=== PATIENT | female | born 1955 | race Caucasian/White ===

== ENCOUNTER 2019-09-28 17:32 | Inpatient (IN) | payer OTHER ==
[~2019-09-28] VITALS: Ht 167.6 cm; Wt 107.5 kg
[2019-09-28 17:35] VITALS: BP 119/67
[2019-09-28 18:35] LABS: BASO # 0.1 10*3/uL (0.0-0.1); BASO % 0.7 % (0.0-1.0); EOS # 0.1 10*3/uL (0.0-0.4); EOS % 1.6 % (1.0-4.0); HEMATOCRIT 45.6 % (37.0-47.0); LYMPH % 33.6 % (27.0-41.0); MEAN CELL VOLUME 92.5 fl (81.0-99.0); MEAN CORPUSCULAR HGB 30.4 pg (27.0-31.0); MEAN CORPUSCULAR HGB CONC 32.9 g/dl (33.0-37.0); MEAN PLATELET VOLUME 9.3 fl (9.6-12.3); MONO # 0.6 10*3/uL (0.1-1.0); MONO % 6.1 % (3.0-9.0); NEUT # 5.2 10*3/uL (2.3-7.9); NEUT % 57.7 % (47.0-73.0); PLATELET COUNT AUTOMATED 240 10*3/uL (130-400); RED BLOOD COUNT 4.93 10*6/uL (4.10-5.10); RED CELL DISTRI WIDTH 12.5 % (0-14.5)
[2019-09-28 18:44] LABS: ACT PARTIAL THROMBO TIME 24.2 SECONDS (20.0-32.1)
[2019-09-28 18:51] LABS: ALBUMIN 3.5 gm/dl (3.1-4.5); ALKALINE PHOSPHATASE 107 U/L (45-117); BUN 12 mg/dl (7-24); CHLORIDE 106 mmol/L (98-107); CREATININE 0.96 mg/dL (0.55-1.02); SGOT/AST 46 IU/L (3-35); SGPT/ALT 70 U/L (12-78); SODIUM 139 mmol/L (136-145)
[2019-09-28 18:54] LABS: TROPONIN I < 0.015 ng/ml (<0.045)
[2019-09-28 18:55] LABS: BILIRUBIN NEGATIVE (NEGATIVE); CLARITY SL CLOUDY (CLEAR); COLOR YELLOW (YELLOW); GLUCOSE 3+ (NEGATIVE); KETONE NEGATIVE (NEGATIVE)
[2019-09-28 18:56] LABS: BLOOD NEGATIVE (NEGATIVE); LEUKO ESTERASE NEGATIVE (NEGATIVE); NITRITE NEGATIVE (NEGATIVE); UROBILINOGEN 0.2 E.U./dl (0.2-1.0)
[2019-09-28 19:06] LABS: BACTERIA 1+; WBC 21-30 wbc/hpf (0-5); YEAST 1+
[2019-09-28 19:59] VITALS: BP 122/67
--- NOTE | 2019-09-28 20:05 | NUR ---
PT RESTING IN ROOM WITH FAMILY AT BEDSIDE. PT REPORTS THAT SHE IS FEELING IMPROVED. VS STABLE. CALL [facility] WITHIN REACH, WILL CONTINUE TO MONITOR.
[2019-09-28] MEDS ORDERED: GLIPIZIDE5 MG PO (22:10)
[2019-09-28] MEDS ORDERED: LOTRISONE 0.05%45 GM T (22:10)
[2019-09-28] MEDS ORDERED: PROTONIX40 MG PO (22:10)
[2019-09-28] MEDS ORDERED: LASIX20 MG PO (22:11)
[2019-09-28] MEDS ORDERED: PIOGLITAZONE HC30 MG PO (22:12)
--- NOTE | 2019-09-28 22:40 | NUR ---
CONSULT CALLED TO DR HARGROVE.
--- NOTE | 2019-09-28 23:30 | NUR ---
DR NAGY NOTIFIED THAT MED RECONCILLIATION WAS COMPLETED.
--- NOTE | 2019-09-28 23:40 | NUR ---
A 63, admitted to , under the services of PRISCILA Paiz DO with a diagnosis of CHEST PAIN. Chief complaint is CHEST PAIN. Patient arrived via stretcher from ER. Monitor applied. Initial assessment completed. Vital signs taken and recorded. PRISCILA PAIZ DO notified of admission to the unit. Orders received. See assessment for past medical history, medications and allergies. Patient and/or family oriented to unit. [facility] reviewed. Clothing/patient valuable form completed. ROSITA LIZ
[2019-09-29] VITALS: BP 113/51
[2019-09-29 07:44] LABS: BASO # 0.1 10*3/uL (0.0-0.1); BASO % 0.6 % (0.0-1.0); EOS # 0.2 10*3/uL (0.0-0.4); EOS % 2.4 % (1.0-4.0); HEMATOCRIT 45.4 % (37.0-47.0); HEMOGLOBIN 14.9 g/dl (12.0-16.0); LYMPH # 2.5 10*3/uL (1.3-4.4); LYMPH % 31.7 % (27.0-41.0); MEAN CELL VOLUME 91.9 fl (81.0-99.0); MEAN CORPUSCULAR HGB 30.2 pg (27.0-31.0); MEAN CORPUSCULAR HGB CONC 32.8 g/dl (33.0-37.0); MEAN PLATELET VOLUME 9.4 fl (9.6-12.3); MONO # 0.6 10*3/uL (0.1-1.0); MONO % 7.2 % (3.0-9.0); NEUT # 4.5 10*3/uL (2.3-7.9); NEUT % 57.8 % (47.0-73.0); PLATELET COUNT AUTOMATED 231 10*3/uL (130-400); RED BLOOD COUNT 4.94 10*6/uL (4.10-5.10); RED CELL DISTRI WIDTH 12.5 % (0-14.5); WHITE BLOOD COUNT 7.8 10*3/uL (4.8-10.8)
[2019-09-29 08:07] LABS: ALBUMIN 3.1 gm/dl (3.1-4.5); ALKALINE PHOSPHATASE 89 U/L (45-117); BUN 11 mg/dl (7-24); CHLORIDE 109 mmol/L (98-107); CHOLESTEROL 195 mg/dL (<200); CREATININE 0.68 mg/dL (0.55-1.02); PHOSPHOROUS 3.3 mg/dL (2.5-4.9); POTASSIUM 3.6 mmol/L (3.5-5.1); SGOT/AST 39 IU/L (3-35); SGPT/ALT 62 U/L (12-78); SODIUM 141 mmol/L (136-145); TOTAL PROTEIN 7.1 gm/dL (6.4-8.2); TRIGLYCERIDES 174 mg/dl (<150); VLDL CHOLESTEROL 35 mg/dL (6-40)
[2019-09-29 08:13] LABS: FREE T4 1.02 ng/dl (0.76-1.46); HDL CHOLESTEROL 34 mg/dl (40-60); LDL CHOLESTEROL 126 mg/dL (9-159)
[2019-09-29 08:30] VITALS: BP 120/70
[2019-09-29 08:36] LABS: VITAMIN D, 25-HYDROXY 11.7 ng/mL (30-100)
--- NOTE | 2019-09-29 10:30 | NUR ---
INFORMED CONSENT OBTAINED FOR A LEXISCAN STRESS TEST WITH DR. BRAND. RESTING EKG SINUS MARCELINO-NSR WITH A HT RT OF 66, AND A BP OF 114/66. COMPLETED ONE MINUTE OF A LEXISCAN PROTOCOL RECEIVING LEXISCAN 0.4 MG OVER 10 SECONDS. C/O NAUSEA AND FEELING WARM THAT WAS RELIEVED IN RECOVERY. HAD A PEAK HT RT OF 69, WITH A BP OF 100/60. LAST RECOVERY HT RT OF 66, WITH A BP OF 100/58. AWAITING NUCLEAR IMAGING IN STABLE CONDITION.
--- NOTE | 2019-09-29 13:22 | NUR ---
Printing Plate Setter in to talk to patient. Patient states lives at home with family. There are no steps in the home. Physician: Pharmacy: mail Home health services: none Patient's level of ADLs: INDEPENDENT Patient has working utilities: all working DME: none Follow-up physician's appointment after d/c: will be made by hospitalist nurse director upon discharge Does patient want to access PORTAL?: no Discharge plan discussed with patient, she lives at home, is independent in adls and ambulation, she states she will return home when medically stable and denies any home needs. JUAN CRABTREE
--- NOTE | 2019-09-29 17:02 | NUR ---
Discharge instructions reviewed with patient/family. Patient receptive and verbalizes understanding. Follow-up care arranged. Written instructions given to patient/family. Patient ambulated from unit with all personal belongings accounted for. Patient was educated on follow up visit with pcp and/or . AMY BUSH
== END 2019-09-29 17:12 | disposition home or self-care (01) | DRG 313 ==
LOC: ED 17:32 → 4E 20:32 → EDHOLD 20:32 → 4E 21:17
PROVIDERS: Emergency Medicine; Internal Medicine; ADMIT Internal Medicine
PROC: 3E073KZ Introduction of Other Diagnostic Substance into Coronary Artery, Percutaneous Approach (ICD-10-PCS; principal; 2019-09-29)
PROC: 4A02XM4 Measurement of Cardiac Total Activity, External Approach (ICD-10-PCS; principal; 2019-09-29)
DX: R07.89 Other chest pain (principal); E83.41 Hypermagnesemia; E11.65 Type 2 diabetes mellitus with hyperglycemia; E78.5 Hyperlipidemia, unspecified; K21.9 Gastro-esophageal reflux disease without esophagitis; R06.09 Other forms of dyspnea; I25.9 Chronic ischemic heart disease, unspecified; E87.8 Other disorders of electrolyte and fluid balance, not elsewhere classified; E66.9 Obesity, unspecified; R60.0 Localized edema; I10 Essential (primary) hypertension; Z82.49 Family history of ischemic heart disease and other diseases of the circulatory system; Z90.49 Acquired absence of other specified parts of digestive tract; Z83.3 Family history of diabetes mellitus; Z82.0 Family history of epilepsy and other diseases of the nervous system; Z79.899 Other long term (current) drug therapy; Z68.38 Body mass index [BMI] 38.0-38.9, adult

== ENCOUNTER → 2023-04-22 | Outpatient (CLI) | payer OTHER ==
[~2023-04-22] MED LIST: GLIPIZIDE5 MG PO; LASIX20 MG PO; LOTRISONE 0.05%45 GM T; PIOGLITAZONE HC30 MG PO; PROTONIX40 MG PO
== END | disposition home or self-care (01) ==
LOC: RAD 14:01
PROVIDERS: ATTEND Chiropractor
DX: M16.11 Unilateral primary osteoarthritis, right hip (principal); M76.9 Unspecified enthesopathy, lower limb, excluding foot; M47.815 Spondylosis without myelopathy or radiculopathy, thoracolumbar region; M47.817 Spondylosis without myelopathy or radiculopathy, lumbosacral region; M47.812 Spondylosis without myelopathy or radiculopathy, cervical region